=== PATIENT | male | born 1965 | race Caucasian/White ===

== ENCOUNTER 2016-12-02 09:55 | Day surgery (SDC) | payer BC ==
[2016-11-27 14:05] VITALS: BMI 40.0
--- NOTE | 2016-11-27 14:33 | PAT Medication Instructions ---
Service Date Nov 27, 2016. Current Home Medication List Lisinopril (Zestril), 1 TAB PO DAILY Medication Instructions For Your Scheduled Surgery - Hold the following medications the morning of surgery: Lisinopril (Zestril), 5mg 1 TAB PO DAILY If you have any questions please call us at [phone] or [phone] ( [place]) or [phone]
[2016-11-27 15:28] LABS: BASO % 0.6 %; BASO ABS # 0.04 K/uL (0-0.2); COMPLETE YES; EOS % 5.4 %; HEMATOCRIT 41.3 % (42-52); IG% 0.4 %; LYMPH % 23.8 %; LYMPH ABS # 1.64 K/uL (1.2-3.4); MEAN CELL VOLUME 84.8 fL (80-100); MEAN CORPUSCULAR HEMOGLOBIN 30.2 pg (25-34); MEAN CORPUSCULAR HGB CONC 35.6 g/dl (32-36); MEAN PLATELET VOLUME 9.8 fL (7.4-10.4); MONO % 9.1 %; NEUT % 60.7 %; PLATELET COUNT 134 K/uL (130-400); RED BLOOD COUNT 4.87 M/uL (4.7-6.1); WHITE BLOOD COUNT 6.89 K/uL (4.8-10.8)
[2016-11-27 15:40] LABS: PROTHROMBIN TIME (PATIENT) 10.6 SECONDS (9.0-12.0)
[2016-11-27 16:06] LABS: BUN/CREATININE RATIO 15.1 (10-20); CREATININE 1.1 mg/dl (0.60-1.40); POTASSIUM 3.7 mmol/L (3.5-5.1)
--- NOTE | 2016-12-01 15:29 | HISTORY & PHYSICAL EXAMINATION ---
DATE OF ADMISSION: 12/02/2016 HISTORY OF PRESENT ILLNESS: The patient presents as a 5 foot 6, 240 pound, BMI of 38.7, 51-year-old white male with complaints of ongoing pain attributable to his right knee. He has had ongoing complaints of pain that have been nonresponsive to conservative management including physical therapy, anti-inflammatories, bracing, relative rest, injections with corticosteroids. He presents with a knee exam consistent with that of a torn medial meniscus, torn lateral meniscus, as well as chondromalacia patella. He presents for arthroscopy, arthroscopic partial medial meniscectomy, partial lateral meniscectomy, chondroplasty of patella pending findings at time of surgery, postoperative pain management, DVT prophylaxis, antibiotics as necessary. He has failed all other attempts at conservative management. PAST MEDICAL HISTORY: Consistent with hypertension, hypercholesterolemia, sleep apnea. Unremarkable. See history of present illness for pertinent positives. FAMILY HISTORY: Otherwise unremarkable and noncontributory. SOCIAL HISTORY: The patient denies history of smoking, alcohol use or recreational drug use. PAST SURGICAL HISTORY: Unremarkable. ALLERGIES: The patient has no allergies. MEDICATIONS: Lisinopril, dose unknown. PHYSICAL EXAMINATION: GENERAL: Reveals a very pleasant 51-year-old white male, alert, oriented x3 in no acute distress. HEAD, EYES, EARS, NOSE, AND THROAT: Atraumatic, normocephalic. HEART: Regular at 72 beats per minute. LUNGS: Clear without rales, rhonchi, or wheezes noted. ABDOMEN: Soft, nontender, nondistended. Bowel sounds are present in all 4 quadrants. RECTAL: No rectal examination was performed. MUSCULOSKELETAL EXAMINATION: Consistent with that of severe knee pain. Right knee with exam consistent with that of a torn medial meniscus. PLAN: For arthroscopy, arthroscopic partial posterior horn medial meniscectomy, partial posterior and lateral meniscectomy pending findings at time of surgery. Postop pain management, DVT prophylaxis, antibiotics as necessary. X-ray and MRI examination consistent with torn medial meniscus, torn lateral meniscus and chondromalacia patella. Plan is for arthroscopy, postoperative pain management, DVT prophylaxis as noted above.
[~2016-12-02] VITALS: Ht 167.6 cm; Wt 112.9 kg
[~2016-12-02 09:55] MED LIST: CEFAZOLIN 2000 MG/60 ML D5W IV SCH; LACTATED RINGER'S 1000ML 1,000 ML IV SCH; LISI-790 PO
[2016-12-02 10:30] VITALS: BP 189/94; PULSE 85; TEMP 36.6; O2SAT 99; Ht 167.6 cm; Wt 112.9 kg
--- NOTE | 2016-12-02 10:47 | History & Physical Bridge Note ---
H&P Re-Evaluation Bridge Note: I have examined the patient, reviewed the History & Physical and in the interval since the performance of the History & Physical I have noted the following changes of clinical significance: No changes noted
[2016-12-02] MEDS ORDERED: FENTANYL CITRATE INJ 50 MCG/1 ML 2 ML VIAL ONE ×2 (12:47→14:36)
[2016-12-02] MEDS ORDERED: DEXAMETHASONE SOD INJ 4 MG/ML VIAL ONE (12:47)
[2016-12-02] MEDS ORDERED: SUCCINYLCHOLINE CHLORIDE 20 MG/ML 10 ML VIAL IV ONE (12:47)
[2016-12-02] MEDS ORDERED: ONDANSETRON INJ 2 MG/ML 2 ML VIAL ONE (12:47)
[2016-12-02] MEDS ORDERED: EpHEDrine SULFATE INJ 50 MG/ML AMP ONE (12:47)
[2016-12-02] MEDS ORDERED: ROCURONIUM BROMIDE 10 MG/ML 5 ML VIAL ONE (12:47)
[2016-12-02] MEDS ORDERED: PROPOFOL IV EMULSION 10 MG/ML 20 ML VIAL IV ONE (12:47)
[2016-12-02] MEDS ORDERED: NEOSTIGMINE METHYLSULFATE 5 MG/5 ML SYR ONE (12:47)
[2016-12-02] MEDS ORDERED: GLYCOPYRROLATE INJ 0.2 MG/ML VIAL ONE (12:47)
[2016-12-02] MEDS ORDERED: PHENYLEPHRINE HCL INJ 10 MG/ML VIAL ONE (12:47)
[2016-12-02] MEDS ORDERED: LIDOCAINE HCL 2% 2 ML VIAL (20MG/ML) ONE (12:47)
[2016-12-02] MEDS ORDERED: MIDAZOLAM HCL 1 MG/ML 2ML VIAL ONE (12:47)
[2016-12-02] MEDS ORDERED: BUPIVACAINE/EPINEPHRINE 0.25% 1:200,000 30 ML VIAL ONE (13:00)
[2016-12-02] MEDS ORDERED: BUPIVACAINE/EPINEPHRINE 0.5% MPF 1:200,000 30 ML VIAL ONE (13:00)
[2016-12-02] MEDS ORDERED: ATROPINE SULFATE 0.1 MG/ML 5ML SYR IV PRN (13:45)
[2016-12-02] MEDS ORDERED: FENTANYL CITRATE INJ 50 MCG/1 ML 2 ML VIAL IV PRN (13:45)
[2016-12-02] MEDS ORDERED: LABETALOL HCL IV 5 MG/ML 20ML IV PRN (13:45)
[2016-12-02] MEDS ORDERED: PROMETHAZINE HCL INJ 12.5 MG in SODIUM CHLORIDE 0.9% 50ML 50 ML IV PRN (13:45)
[2016-12-02] MEDS ORDERED: ONDANSETRON INJ 2 MG/ML 2 ML VIAL IV PRN ×2 (13:45→14:00)
[2016-12-02] MEDS ORDERED: KETOROLAC TROMETHAMINE 30 MG/ML VIAL IV. PRN (13:45)
[2016-12-02] MEDS ORDERED: LARYING-O-JET KIT (LTA) EXT ONE ×2 (13:52)
[2016-12-02] MEDS ORDERED: SODIUM CHLORIDE 0.9% 1000ML 1,000 ML IV SCH (13:56)
--- NOTE | 2016-12-02 13:58 | Discharge Instructions ---
Discharge Instructions Date of Service Dec 02, 2016. Visit Reason for Visit: Right Knee Medial Meniscus Tear Discharge Discharge Diagnosis / Problem: right knee scope and partial meniscectomy Discharge Goals Goal(s): Decrease discomfort, Improve function, Increase independence Activity Recommendations Activity Limitations: as noted below Weightbearing Status: Right weightbearing (as tolerated) Anesthesia . Post Anesthesia Instructions: If you have had General Anesthesia or IV Sedation: * Do not drive today. * Resume driving when surgeon permits. * Do not make important decisions or sign legal documents today. * Call surgeon for: 1. Temperature elevations greater than 101 degrees F. 2. Uncontrollable pain. 3. Excessive bleeding. 4. Persistent nausea and vomiting. 5. Medication intolerance (nausea, vomiting or rash). * For nausea and vomiting use only clear liquids such as: tea, soda, bouillon until nausea subsides, then gradually increase diet as tolerated. * If you have any concerns or questions, call your surgeon's office. If physician is unavailable and it is an emergency, call 911 or go to the nearest emergency room. . Instructions / Follow-Up Instructions / Follow-Up ACTIVITY RECOMMENDATIONS: * You may walk on the leg with or without crutches as comfort permits. * Bending of the knee should start at once. * Do not shower for 48 hours following surgery. SPECIAL CARE INSTRUCTIONS: * You may cleanse the skin adjacent to the small wounds with soap and water at the time of the first dressing change. * The application of an ice bag to the front and sides of the knee will decrease swelling and discomfort for the first 48 hours. * The small incisions may be sore and develop bruising. This bruising does not require any special care. SPECIAL PRECAUTIONS: * If you experience unusual pain unrelieved by prescriptions, temperature elevation (100 degrees F. or above) or progressive swelling or bleeding, you should contact our office at for further evaluation. * You may have been prescribed pain medication. If you experience nausea and/or fine skin rash, discontinue this medication and contact our office at for an alternate medication. DRESSING: * Dressing should be comfortable and absorb any leakage of fluid and/or blood. * The dressing may become moist or bloodstained. * Dressing may be removed _48 hours_ after surgery and bandaids placed over the small surgical incisions. If can be removed sooner if it becomes very soiled or loose. * Bandaids may be used over next several days as needed and can be discontinued when there is not further drainage from the wounds. FOLLOW UP VISIT: If appointment is not already scheduled: Please call [facility] to make a follow-up appointment for your surgery at . Diet Recommendations Recommended Home Diet: resume previous diet Procedures Procedures Performed: Right Knee Arthroscopy with Partial Medial and Lateral Menisectomies, Chondroplasty: Patella Pending Studies Studies pending at discharge: no Medical Emergencies . Who to Call and When: Medical Emergencies: If at any time you feel your situation is an emergency, please call 911 immediately. . Non-Emergent Contact Non-Emergency issues call your: Primary Care Provider, Surgeon . . "Provider Documentation" section prepared by Bertin Winn. [facility] Drug Monitoring Program Search Results: patient reviewed within database, no issues identified
[2016-12-02] MEDS ORDERED: HYDR-5688 PO (13:59)
[2016-12-02] MEDS ORDERED: HYDROCODONE/ACETAMOPHEN 5/325MG TAB PO PRN ×2 (14:00)
--- NOTE | 2016-12-02 14:05 | [facility] Post Operative Brief Note ---
Immediate Operative Summary Operative Date Dec 02, 2016. Pre-Operative Diagnosis torn medial and lateral mensicus Post-Operative Diagnosis torn medial meniscus; grade 3 medial femoral chondyle and patellofemoral Procedure(s) Performed Right Knee Arthroscopy with Partial Medial menisectomy Chondroplasty: Patella and medial femoral condyle Surgeon Dr. Rick Rai Felling Bucking Supervisor Surgeon(s) None Estimated Blood Loss 3ML Findings TMM Grade 3 mfc and pf Specimens none per surgeon Dr. Rick Rai Complication(s) None Disposition Recovery Room / PACU
--- NOTE | 2016-12-02 14:14 | OPERATIVE REPORT ---
DATE OF OPERATION: 12/02/2016 PREOPERATIVE DIAGNOSIS: Right knee torn medial meniscus. POSTOPERATIVE DIAGNOSES: Right knee torn medial meniscus, grade 3 chondral lesion medial femoral condyle and patellofemoral joint. PROCEDURE: Right knee arthroscopy, partial meniscectomy, arthroscopic chondroplasty medial femoral condyle and patellofemoral joint. SURGEON: Dr. Rai. ANESTHESIA: General. COMPLICATIONS: None. GROSS FINDINGS: The patient is a very pleasant 51-year-old white male with complaints of ongoing pain attributed to his knees that has been nonresponsive to conservative therapy and presents today for arthroscopic evaluation. He has failed attempts at conservative management including relative rest, activity modification, physical therapy and presents for arthroscopic evaluation. PROCEDURE: After proper prepping and draping of the right lower extremity, medial and lateral arthroscopic parapatellar portals were created. Arthroscopic examination beginning in the region of the medial compartment revealed there to be evidence of a tear involving the posterior horn of the posterior third of the medial meniscus. Subsequently, a partial posterior horn medial meniscectomy was performed. The medial femoral condyle approximately grade 3 zone, approximately 2 x 3 cm in medial femoral condyle and chondroplasty performed a stable margin. Lateral meniscus was visualized and probed and noted to be intact. Anterior and posterior cruciate ligaments were visualized and probed and noted to be intact, patellofemoral joint was visualized and probed and evidence of grade 2 and 3 chondral lesion involving the medial ridge of the patella subsequently debrided and a chondroplasty performed back to a stable margin. All particulate matter and debris was removed. Skin portals were closed with 4-0 nylon. Sterile compression dressing was placed. The patient was taken to recovery room in stable condition. I attest to the content of the Intraoperative Record and any orders documented therein. Any exceptions are noted below. JESSICA
--- NOTE | 2016-12-02 14:47 | Anesthesiology Progress Note ---
Anesthesia Post Op Note Date & Time Dec 02, 2016 at 14:47 Vital Signs Pain Intensity: 5 Vital Signs Past 12 Hours Date Time Temp Pulse Resp B/P Pulse Ox O2 Delivery O2 Flow Rate FiO2 12/02/16 14:40 70 16 143/88 98 Room Air 12/02/16 14:30 79 16 143/88 100 Mask 10 12/02/16 14:20 77 16 153/96 100 Mask 10 12/02/16 14:07 36.1 74 16 143/94 100 Mask 10 12/02/16 10:30 36.6 85 18 189/94 99 Room Air Notes Mental Status: alert / awake / arousable, participated in evaluation Pt Amnestic to Procedure: Yes Nausea / Vomiting: adequately controlled Pain: adequately controlled Airway Patency, RR, SpO2: stable & adequate BP & HR: stable & adequate Hydration State: stable & adequate Anesthetic Complications: no major complications apparent
[2016-12-02 15:10] VITALS: BP 134/81; PULSE 75; TEMP 36.5; O2SAT 100
[2016-12-02 15:40] VITALS: BP 154/85; PULSE 73; TEMP 36.7; O2SAT 95
[2016-12-02 16:10] VITALS: BP 148/89; PULSE 87; TEMP 36.7; O2SAT 97
== END 2016-12-02 16:20 | disposition home or self-care (01) ==
LOC: C.ACU 09:55
PROVIDERS: ATTEND Orthopaedic Surgery
DX: S83.241A Other tear of medial meniscus, current injury, right knee, initial encounter (principal); X58.XXXA Exposure to other specified factors, initial encounter; M25.861 Other specified joint disorders, right knee; I10 Essential (primary) hypertension; G47.30 Sleep apnea, unspecified

== ENCOUNTER 2020-07-23 07:34 | Inpatient (IN) ==
--- NOTE | 2020-06-21 14:17 | PAT Medication Instructions ---
Medication Instructions Date of Service June 21, 2020 Home Medications lisinopril 5 mg PO QAM tizanidine 4 mg PO BID PRN tramadol 50 mg PO Q8H PRN DO NOT take the morning of surgery isinopril 5 mg PO QAM tizanidine 4 mg PO BID PRN Take morning of surgery With a small sip of water, OTHERWISE NOTHING TO EAT OR DRINK AFTER MIDNIGHT: tramadol 50 mg PO Q8H PRN (okay to take up to 4 hours prior to surgery if needed) Take evening before surgery tizanidine 4 mg PO BID PRN (if needed) tramadol 50 mg PO Q8H PRN (if needed) Other Notes If you have any questions please call us at [phone] or [phone] or [phone] or [phone]
--- NOTE | 2020-06-25 09:19 | Anesthesiology Consultation ---
Date of Service June 25, 2020 Assessment & Plan (1) Encounter for pre-operative examination: Chart Review Chart Review: Acceptable Risk for Surgery (pending preop Covid testing ) and Patient seen in Pre Admission Testing Per PAT appt on 06/25/20, pt resides in [facility] and travels routinely to [facility]. Uses PPE. No known Covid positive contacts or Covid related symptoms. Scheduled for preop Covid testing 07/16/20. Educated on importance of self quarantining, social distancing and wearing mask in public both for the patient and household contacts. Teaching & Discussion Pre-Anesthesia Teaching/Discussion Notes: Instructed NPO after midnight before surgery,except medications with 15 cc of water. Medication instructions provi ded according to the PAT guidelines. History Surgery Operation Date: 07/23/20 07:45 Proposed Procedures p L3-L4 Decompression and Fusion, L4-L5 Hardware Removal, Spinal Cord Monitoring - Lance Irwin, DO Height/Weight Height: 5 ft 6 in Weight: 113.2 kg Allergies Allergy/AdvReac Type Severity Reaction Status Date / Time No Known Allergies Allergy Unverified 06/21/20 13:07 Medications Home Medications Medication Instructions Recorded Confirmed Last Taken lisinopril 5 mg PO QAM 06/21/20 06/21/20 Unknown tizanidine 4 mg PO BID PRN 06/21/20 06/21/20 Unknown tramadol 50 mg PO Q8H PRN 06/21/20 06/21/20 Unknown Past Medical History Medical History Anxiety Stable without meds GERD (gastroesophageal reflux disease) Well controlled and stable without meds Hypertension Osteoarthritis Exercise / Class Metabolic Activity II 4-5 Yardwork/Stairs/Walk up hill (one flight of stairs - no chest pain or SOB- increased back pain ) Past Surgical History Surgical History History of arthroscopy of right knee History of lumbar fusion Past Anesthesia History No Hx of Anesthesia Complications and No Family Hx of Anesthesia Complications History of PONV No Hx of PONV and No Hx of Motion Sickness Social History Smoking Status: Never smoker Do You Dip or Chew Tobacco: No Hx Alcohol Use: Yes Alcohol type: beer alcohol intake frequency: 0-2 drinks per day Alcohol Intake Frequency Comment: 1-2 drinks per day several times week Hx Substance Use: No substance use type: does not use Review of Systems Occ snoring and occasional witnessed apnea- no hx of sleep study Patient denies chest pain, shortness of breath, dyspnea on exertion, cough, wheezing, palpitations. No hx of seizures, stroke, [place]. No hx of blood clots or blood transfusions Physical Exam Vital Signs VITALS BP 167/99 P 73 TEMP 98.5 SP02 98% RESP 16 Constitutional no acute distress ENMT Mouth: + small oral opening; no TMJ clicking Thyromental Distance: > or= 3.5 Finger Breadths (3.5) Mallampati Class: III Denies loose or missing teeth Neck + thick neck (mild ) and + limited neck extension (minimal ) Respiratory normal respiratory effort; no respiratory distress Auscultation: lungs clear to auscultation bilaterally; no wheezes Cardiovascular Rate/Rhythm: regular rate and regular rhythm Heart Sounds: no murmur Vessels: no carotid bruit Musculoskeletal Spine: no pain with cervical ROM Neurologic moves all extremities Psychiatric Orientation: alert Testing Laboratory Results 06/25/20 09:45 06/25/20 09:45 PT 10.5 Seconds (9.0-12.0) 06/25/20 09:45 INR 1.0 (0.9-1.1) 06/25/20 09:45 APTT 25.8 Seconds (21.0-31.0) 06/25/20 09:45 Urine Color Dark Yellow 06/25/20 09:45 Urine Appearance Clear (Clear) 06/25/20 09:45 Urine pH 5.5 (4.5-7.5) 06/25/20 09:45 Ur Specific Imbler 1.023 (1.000-1.030) 06/25/20 09:45 Urine Protein Negative (Negative) 06/25/20 09:45 Urine Glucose (UA) Negative (Negative) 06/25/20 09:45 Urine Ketones Trace (Negative) H 06/25/20 09:45 Urine Nitrite Negative (Negative) 06/25/20 09:45 Ur Leukocyte Esterase Negative (Negative) 06/25/20 09:45 Blood Type O Positive 06/25/20 09:45 Antibody Screen NEGATIVE 06/25/20 09:45 Electrocardiogram Date: 06/25/20 Findings: + NSR @ (62) Minimal voltage criteria, may be normal variant. Compared to EKG from November 27, 2016- no significant change per cardio. Chest X-Ray Date: 06/25/20 Findings: + NAD There is ankylosis of the thoracic spine.
--- NOTE | 2020-06-25 09:58 | Electrocardiogram Report ---
Test Reason : Blood Pressure : / mmHG Vent. Rate : 062 BPM Atrial Rate : 062 BPM P-R Int : 130 ms QRS Dur : 092 ms QT Int : 410 ms P-R-T Axes : 051 -24 031 degrees QTc Int : 416 ms Normal sinus rhythm Minimal voltage criteria for LVH, may be normal variant Borderline ECG When compared with ECG of 27-NOV-2016 14:40, No significant change was found Confirmed by Zev Cloud ([id number]) on 06/25/2020 9:57:46 AM Referred By: Lance Irwin Confirmed By:Zev Cloud
--- NOTE | 2020-06-25 10:13 | XRay Report ---
XR chest Pre-admission PA/Lat CLINICAL HISTORY: Preoperative chest COMPARISON STUDY: No previous studies for comparison. FINDINGS: The cardiac and mediastinal contours are normal. There is no evidence of focal pulmonary co nsolidation. There is no evidence of failure. No pleural effusions are visualized.[There is ankylosis of the thoracic spine. IMPRESSION: No active disease in the chest. ACT 112: Negative or not required by law. Electronically signed by: Galileo Branham M.D. 06/25/2020 10:12 AM
[2020-06-25 10:22] LABS: Basophils # (auto) 0.04 K/uL (0-0.2); Basophils % (auto) 0.5 %; Eosinophils # (auto) 0.46 K/uL (0-0.5); Eosinophils % (auto) 5.8 %; Hematocrit (blood only) 44.2 % (42-52); Hemoglobin 15.1 g/dL (14.0-18.0); Immature Granulocytes # (auto) 0.06 K/uL (0.00-0.02); Immature Granulocytes % (auto) 0.8 %; Lymphocytes # (auto) 1.78 K/uL (1.2-3.4); Lymphocytes % (auto) 22.3 %; Mean Corpuscular Hemoglobin 30.1 pg (25-34); Mean Corpuscular Hgb Conc 34.2 g/dL (32-36); Mean Corpuscular Volume 88.2 fL (80-100); Mean Platelet Volume 10.1 fL (7.4-10.4); Neutrophils # (auto) 4.86 K/uL (1.4-6.5); Neutrophils % (auto) 60.6 %; Platelet Count 151 K/uL (130-400); RDW Coefficient of Variation 13.1 % (11.5-14.5); RDW Standard Deviation 41.5 fL (36.4-46.3); Red Blood Count 5.01 M/uL (4.7-6.1)
[2020-06-25 10:30] LABS: Appearance Urine Clear (Clear); Bilirubin Urine Negative (Negative); Blood Urine Negative (Negative); Color Urine Dark Yellow; Glucose Urine UA Negative (Negative); Ketones Urine Trace (Negative); Leukocyte Esterase Urine Negative (Negative); Nitrite Urine Negative (Negative); Protein Urine Negative (Negative); Specific Gravity Urine 1.023 (1.000-1.030); Urobilinogen Urine Negative (Negative); pH Urine 5.5 (4.5-7.5)
[2020-06-25 10:34] LABS: Partial Thromboplastin Ratio 0.9; Partial Thromboplastin Time 25.8 Seconds (21.0-31.0); Prothrombin Time 10.5 Seconds (9.0-12.0)
[2020-06-25 12:30] LABS: Calcium 9.3 mg/dl (8.5-10.1); Creatinine Clr Calc Pharmacy 84.5 ml/min; Est GFR (African American) 82.3; Potassium 4.4 mmol/L (3.5-5.1)
[~2020-07-23 07:34] MED LIST changes: +ACETAMINOPHEN 500 MG TAB PO SCH; -CEFAZOLIN 2000 MG/60 ML D5W IV SCH; +CeleBREX 200 MG CAP PO SCH; +GABAPENTIN 600 MG DOSE PO SCH; +HYDROmorphone INJ 2 MG/ML SYR/VIAL ONE; -LACTATED RINGER'S 1000ML 1,000 ML IV SCH; -LISI-790 PO; +LR 15ML/HR IV SCH; +MIDAZOLAM HCL 1 MG/ML 2ML VIAL ONE; +ceFAZolin 2000MG 2,000 MG/15 ML SYR IV SCH; +fentaNYL citrate 100 MCG/2 ML VIAL ONE
--- NOTE | 2020-07-23 12:05 | History & Physical Bridge Note ---
Date of Service July 23, 2020 History & Physical Bridge Note I have examined the patient, reviewed the History & Physical and in the interval since the performance of the History & Physical I have noted the following changes of clinical significance: no changes noted
--- NOTE | 2020-07-23 12:06 | History & Physical Report ---
Date of Service July 23, 2020 Assessment & Plan (1) Neurogenic claudication due to lumbar spinal stenosis: Admission and Anticipated Discharge Date Admission Date: L3-L4 decompression fusion, L4-5 hardware removal History of Present Illness Chief Complaint: Back and bilateral leg pain Primary Care Provider: Janice Camilo This is a 55-year-old male who presents with chronic persistent back and leg pain. After failing course of nonoperative care is here for surgical invention. Allergies Allergy/AdvReac Type Severity Reaction Status Date / Time No Known Allergies Allergy Unverified 07/23/20 11:16 Home Medications Medication Instructions Recorded Confirmed Type lisinopril 5 mg PO QAM 06/21/20 07/23/20 History tizanidine 4 mg PO BID PRN 06/21/20 07/23/20 History tramadol 50 mg PO Q8H PRN 06/21/20 07/23/20 History Tylenol Extra Strength 2 tab PO BID 07/23/20 07/23/20 History Past Med/Surg History Medical History (Updated 07/23/20 @ 12:06 by Lance Irwin DO) Anxiety Stable without meds GERD (gastroesophageal reflux disease) Well controlled and stable without meds Hypertension Osteoarthritis Surgical History History of arthroscopy of right knee History of lumbar fusion Social History Smoking Status: Never smoker Second Hand Exposure: No; Do You Dip or Chew Tobacco: No; Tobacco Cessation Education Requested by Patient: No Hx Alcohol Use: Yes Alcohol type: beer Hx Substance Use: No Preferred Language: Pashto Communication Ability: Effective Principal Trainer Required: No Beliefs That Will Affect Care: None Current Living Situation: Spouse Other Information That Helps Us Care for You: No Feels Safe at Home: Yes Safety Concerns: Feels Safe At This Time Assistive Devices: Glasses Physical Exam Physical Exam: Patient is alert and oriented Heart regular rhythm Lungs clear to auscultation Results & Data ([facility]) Vital Signs (Past 12 Hours) Vital Signs Temp Pulse Resp BP Pulse Ox 07/23/20 11:26 37 C 105 H 20 181/93 H 97
[2020-07-23] MEDS ORDERED: ePHEDrine sulfate 50 MG/ML AMP IV PRN (12:12)
[2020-07-23] MEDS ORDERED: ONDANSETRON INJ 2 MG/ML 2 ML VIAL IV PRN ×2 (12:12→16:21)
[2020-07-23] MEDS ORDERED: HYDROmorphone INJ 2 MG/ML SYR/VIAL IV PRN (12:12)
[2020-07-23] MEDS ORDERED: PROMETHAZINE HCL 6.25 MG in SODIUM CHLORIDE 0.9% 50 ML IV PRN (12:12)
[2020-07-23] MEDS ORDERED: fentaNYL citrate 100 MCG/2 ML VIAL IV PRN (12:12)
[2020-07-23] MEDS ORDERED: ATROPINE SULFATE 0.1 MG/ML 10ML SYR IV PRN (12:12)
[2020-07-23] MEDS ORDERED: BACITRACIN INJ 50,000 UNIT VIAL ONE (12:27)
[2020-07-23] MEDS ORDERED: BUPIVACAINE/EPINEPHRINE 0.5% MPF 1:200,000 30 ML VIAL ONE (12:27)
[2020-07-23] MEDS ORDERED: PHENYLEPHRINE HCL 10 MG/ML VIAL ONE (13:17)
[2020-07-23] MEDS ORDERED: ROCURONIUM BROMIDE 10 MG/ML 5 ML VIAL IV ONE (13:17)
[2020-07-23] MEDS ORDERED: PROPOFOL IV EMULSION 10 MG/ML 20 ML VIAL IV ONE (13:17)
[2020-07-23] MEDS ORDERED: ONDANSETRON INJ 2 MG/ML 2 ML VIAL ONE (13:17)
[2020-07-23] MEDS ORDERED: DEXAMETHASONE SOD INJ 4 MG/ML VIAL ONE (13:17)
[2020-07-23] MEDS ORDERED: LIDOCAINE HCL 2% 2 ML VIAL/AMP(20MG/ML) INFIL ONE (13:17)
[2020-07-23] MEDS ORDERED: LARYING-O-JET KIT (LTA) ONE (13:17)
[2020-07-23] MEDS ORDERED: FLOSEAL HEMOSTATIC MATRIX 10ML TOP ONE (13:32)
[2020-07-23] MEDS ORDERED: fentaNYL citrate 100 MCG/2 ML VIAL ONE (13:44)
--- NOTE | 2020-07-23 14:13 | Operative Report ---
Post Operative Report Pre & Post Diagnosis Operation Date: 07/23/20 09:15 Pre-Op Diagnosis: Neurogenic claudication due to lumbar spinal stenosis Post-Op Diagnosis: Neurogenic claudication due to lumbar spinal stenosis I identified the patient and participated in the time-out.: Yes Procedure Operation Date: 07/23/20 09:15 Actual Procedures #1 removal of posterior instrumentation L4-5 per #2 exploration of fusion L4-5. #3 lumbar decompression with bilateral medial facetectomies and foraminotomies L2-3 and L3-4. #4 posterior spinal fusion L3-4 per #5 placement posterior instrumentation L3-4. #6 interbody fusion L3-4. #7 placement peek cage 12 x 26 mm at L3-4. #8 placement locally harvested morselized autograft in the posterior gutters. #9 placement infuse collagen sponge, master graft and posterior gutters and ostial amp interbody space. Surgeon Lance Irwin, Chiropractor Assistant Nuris Dominguez Estimated Blood Loss 200 Findings See Below The patient is 5 foot 6 inches tall weighing over 112 kg with a BMI of 40. The patient's body habitus did add significant technical difficulty requiring her deepest retractors longus instruments in order to perform this procedure. This added at least 50% increase to the operative time. Specimens None Indications This is a 55-year-old male who presents with above-mentioned diagnosis after failing course of nonoperative care is here for debridement procedure. Description of Procedure Patient was met with identified informed consent obtained. Patient was then taken to the operative suite underwent an patient placed in a prone position the Stephon table on top of the Tej frame. All bony prominences well-padded eyes inspected to ensure no external pressure placed upon them. This point the lumbar spine was prepped and draped in normal sterile fashion. Sharp dissection with the assistance of Bovie cautery was performed down to and exposing the lamina and transverse processes of L3 and the instrumentation at L4 and L5 bilaterally. Then proceeded move the hardware bilaterally explore the fusion mass noting it to be intact. Then performed a complete laminectomy of L3 partial laminectomy L2 including bilateral medial facetectomies and foraminotomies addressing severe spinal stenosis. Pedicle screw was then placed in L3 and L4 bilaterally with the assistance of fluoroscopy and appropriately sized cadence placed. By way of a transforaminal approach and left complete discectomy of L3-4 was performed endplates curetted to subcortical bleeding bone and a 12 x 26 mm peek cage filled with osteobone graft tapped in position. The rods then locked in final position bilaterally. The transverse processes of L3 and L4 were burred to subcortical bleeding bone. Infuse collagen sponge master graft local autograft was placed in the posterior gutters. 15 round RAFIA drain inserted. Incision was then closed with 1 Vicryl in the fascia 2-0 Vicryl subcutaneously and 4 Monocryl for final skin closure. Steri-Strip sterile dressings placed. Patient waken taken to PACU stable condition. Please note spinal cord monitoring was utilized that the procedure no changes noted. Lastly Nuris Dominguez was present at the entire procedure involved the patient positioning complex portions of the surgery and final skin closure. I attest to the content of the Intraoperative Record and any orders documented therein. Any exceptions are noted below.
--- NOTE | 2020-07-23 14:21 | Fluoroscopy Report ---
FL lumbar spine 2-3V CLINICAL HISTORY: L3-L4 DECOMPRESSION AND FUSION L4-L5 HW REMOVAL COMPARISON STUDY: None. FLUOROSCOPY TIME: 11.4 seconds. FLUOROSCOPIC IMAGES: 2. FINDINGS: Exact localization is difficult given partial visualization of the lumbar spine however the se images demonstrate a probable interval L3-L4 discectomy with interbody spacer placement. Posterior decompression is noted with bilateral pedicle screws at the L3 and L4 levels with interconnecting ro ds. A previous L4-L5 discectomy is noted. IMPRESSION: Fluoroscopy provided during L3-L4 discectomy, posterior decompression and bilateral pedi arcenio screw fusion. ACT 112: Negative or not required by law. Electronically signed by: Orlin Lopes M.D. 07/23/2020 2:20 PM
--- NOTE | 2020-07-23 15:55 | Anesthesiology Progress Note ---
Date of Service July 23, 2020 Anesthesia Post Procedure Vital Signs Vital Signs: Temp Pulse Pulse Resp BP BP Pulse Ox 07/23/20 15:45 36.6 C 88 14 138/86 92 07/23/20 15:35 92 H 15 156/84 H 96 07/23/20 15:25 99 H 16 153/91 H 95 07/23/20 15:15 99 H 17 172/87 H 95 07/23/20 15:05 90 13 122/95 97 07/23/20 14:55 94 H 14 179/85 H 97 07/23/20 14:45 108 H 18 165/92 H 98 07/23/20 14:39 36.0 C L 116 H 18 148/97 H 97 07/23/20 11:26 37 C 105 H 20 181/93 H 97 Pain Intensity Bilateral Knee: Pain Intensity: 7 Transfer of Care Handoff Completed per policy Notes Mental Status: alert / awake / arousable Patient Amnestic to Procedure: Yes Nausea / Vomiting: adequately controlled Pain: adequately controlled Airway Patency, RR, SpO2: stable & adequate BP & HR: stable & adequate Hydration State: stable & adequate Anesthetic Complications: no major complications apparent
[2020-07-23] MEDS ORDERED: tiZANidine HCL 4 MG TABLET PO PRN (16:21)
[2020-07-23] MEDS ORDERED: diphenhydrAMINE Capsule 25 MG CAP PO PRN (16:21)
[2020-07-23] MEDS ORDERED: DO NOT ADMINISTER FLU VACCINE PRN (16:21)
[2020-07-23] MEDS ORDERED: ONDANSETRON 4 MG OD TAB PO PRN (16:21)
[2020-07-23] MEDS ORDERED: LORazepam 0.5 MG TAB PO PRN (16:21)
[2020-07-23] MEDS ORDERED: FAMOTIDINE 20 MG TAB PO PRN (16:21)
[2020-07-23] MEDS ORDERED: MAGNESIUM HYDROXIDE SUSP 30 ML UDC PO PRN (16:21)
[2020-07-23] MEDS ORDERED: HYDROmorphone INJ 0.5 MG/0.5 ML SYR IV PRN (16:21)
[2020-07-23] MEDS ORDERED: DO NOT ADMINISTER PNEUMOCOCCAL VACCINE PRN (16:21)
[2020-07-23] MEDS ORDERED: NALOXONE HCL 0.4 MG/1 ML VIAL/CARP IV PRN (16:21)
[2020-07-23] MEDS ORDERED: ALUMINUM/MAGNESIUM SUSP 30 ML UDC PO PRN (16:21)
[2020-07-23] MEDS ORDERED: PROMETHAZINE HCL 12.5 MG in SODIUM CHLORIDE 0.9% 50 ML IV PRN (16:21)
[2020-07-23] MEDS ORDERED: traMADol HCL 50 MG TABLET PO PRN (16:21)
[2020-07-23] MEDS ORDERED: bisacodyL 10 MG SUPP PR PRN (16:21)
[2020-07-23] MEDS ORDERED: METOCLOPRAMIDE HCL INJ 5 MG/ML 2 ML VIAL IV PRN (16:21)
[2020-07-23] MEDS ORDERED: oxyCODONE HCL IR 5 MG TAB (IMMEDIATE RELEASE) PO PRN (16:21)
[2020-07-23] MEDS ORDERED: SOD PHOSPHATE/SOD BIPHOSPHATE ENEMA 132 ML BTL PR PRN (16:21)
[2020-07-23] MEDS ORDERED: hydrOXYzine HCl 25 MG TAB PO PRN (16:21)
[2020-07-23] MEDS ORDERED: HYDROmorphone INJ 1 MG/ML SYRINGE IV PRN (16:21)
[2020-07-23] MEDS ORDERED: ACETAMINOPHEN 1,000 MG/100 ML VIAL IV PRN (16:21)
[2020-07-23] MEDS ORDERED: LORazepam 0.5 MG/1 ML VIAL IV PRN (16:21)
[2020-07-23] MEDS: LACTATED RINGER'S 1,000 ML IV SCH ×2 (16:41→23:13)
[2020-07-23] MEDS: KETOROLAC 30 MG/ML VIAL IV SCH ×2 (17:17→23:15)
[2020-07-23] MEDS: ceFAZolin 2000MG 2,000 MG/15 ML SYR IV SCH (19:17)
[2020-07-23] MEDS: DOCUSATE SODIUM/SENNA 50/8.6MG TAB PO SCH (19:20)
[2020-07-24] MEDS: ceFAZolin 2000MG 2,000 MG/15 ML SYR IV SCH (04:42)
[2020-07-24] MEDS: KETOROLAC 30 MG/ML VIAL IV SCH ×2 (04:42→10:16)
[2020-07-24] MEDS: POLYETHYLENE (MIRALAX) 17 GM PACK PO SCH ×3 (04:43→18:04)
[2020-07-24 06:55] LABS: Hematocrit (blood only) 38.9 % (42-52); Hemoglobin 13.3 g/dL (14.0-18.0); Immature Granulocytes # (auto) 0.07 K/uL (0.00-0.02); Immature Granulocytes % (auto) 0.3 %; Lymphocytes # (auto) 0.74 K/uL (1.2-3.4); Lymphocytes % (auto) 3.7 %; Mean Corpuscular Hemoglobin 30.2 pg (25-34); Mean Corpuscular Hgb Conc 34.2 g/dL (32-36); Mean Corpuscular Volume 88.2 fL (80-100); Mean Platelet Volume 10.5 fL (7.4-10.4); Monocytes # (auto) 1.13 K/uL (0.11-0.59); Monocytes % (auto) 5.6 %; Neutrophils # (auto) 18.32 K/uL (1.4-6.5); Neutrophils % (auto) 90.4 %; Platelet Count 189 K/uL (130-400); RDW Coefficient of Variation 13.4 % (11.5-14.5); RDW Standard Deviation 42.9 fL (36.4-46.3); Red Blood Count 4.41 M/uL (4.7-6.1); White Blood Count 20.26 K/uL (4.8-10.8)
[2020-07-24 07:12] LABS: BUN Creatinine Ratio 14.8 (10-20); Calcium 9.7 mg/dl (8.5-10.1); Creatinine Clr Calc Pharmacy 67.1 ml/min; Est GFR (African American) 62.6; Potassium 4.2 mmol/L (3.5-5.1)
[2020-07-24] MEDS: lisinopril 5 MG TAB PO SCH (08:33)
--- NOTE | 2020-07-24 09:08 | Orthopedic Progress Note ---
Date of Service July 24, 2020 Assessment & Plan (1) Neurogenic claudication due to lumbar spinal stenosis: Admission and Anticipated Discharge Date Admission Date: July 23, 2020 At this time continue physical therapy monitor his RAFIA output hopefully discharge home in the next day or so. Subjective Patient's back pain is well controlled leg symptoms markedly improved. Physical Exam Physical Exam: Patient is in the chair at the bedside is good strength testing. Appears comfortable. Results & Data ([facility]) Vital Signs (Past 12 Hours) Vital Signs Temp Pulse Resp BP Pulse Ox 07/24/20 07:28 36.7 C 97 H 18 125/76 95 07/24/20 03:06 36.4 C L 104 H 16 142/80 H 91 07/23/20 23:41 36.4 C L 108 H 16 149/81 H 97
[2020-07-24] MEDS: DEXAMETHASONE SOD PHOSPHATE 8 MG in SYRINGE 0 ML IV SCH (10:15)
[2020-07-24] MEDS: ACETAMINOPHEN 500 MG TAB PO PRN (12:51)
[2020-07-24] MEDS: DOCUSATE SODIUM/SENNA 50/8.6MG TAB PO SCH (20:15)
[2020-07-25] MEDS: ACETAMINOPHEN 500 MG TAB PO PRN (02:55)
--- NOTE | 2020-07-25 08:11 | Discharge Summary ---
Date of Service July 25, 2020 Admission HPI Per Admitting Provider This is a 55-year-old male who presents with chronic persistent back and leg pain. After failing course of nonoperative care is here for surgical invention. Principal Diagnosis Lumbar spinal stenosis with neurogenic claudication Discharge Data Allergies Allergy/AdvReac Type Severity Reaction Status Date / Time No Known Allergies Allergy Unverified 07/23/20 11:16 Consultations 07/23/20 16:21 Consult Case Management - Discharge Planning Routine Procedures Performed Operation Date: 07/23/20 09:15 Actual Procedures p L3-L4 Decompression and Fusion, Spinal Cord Monitoring(Not Applicable) - Lance Irwin DO s L4-L5 Hardware Removal(Not Applicable) - Lance Irwin DO Ordered Studies 07/23/20 10:25 FL fluoroscopy <1hr Routine FL lumbar spine 2-3V Routine Hospital Course (1) Neurogenic claudication due to lumbar spinal stenosis: Patient with lumbar decompression fusion tolerated as well as making orthopedic for postoperative. Postop day 1 he was up and ambulating briskly postop day #2. RAFIA drain decreasing probably. Excellent strength testing. Subsequent discharge home. Discharge orders and instructions were on the chart for further review. Total Time Total Time Spent Total Time Spent (In Minutes): 20 minutes Discharge Plan Discharge Items Patient Disposition: Home - Self-Care Reason For Visit: Spinal Stenosis, Lumbar Region with Neurogenic Cla Discharge Diagnosis: Lumbar spinal stenosis with neurogenic claudication Activity: As commented below Non-emergency contact: Primary Care Provider Call non-emergency contact if: you have any medication questions Follow-up/Referrals: Janice Camilo M.D. [Primary Care Provider] - Diet: Regular Addtl Attending Provider Instructions: ACTIVITY RECOMMENDATIONS: SELF CARE INSTRUCTIONS AFTER THORACIC/LUMBAR FUSIONS 1. You may walk to your tolerance. It is good exercise for your legs and back. Expect some back and intermittent leg aches and pains. 2. You may perform "counter-top" level activities (make a sandwich, juno with a project, etc.). 3. No bending or lifting of more than 10 pounds or back twisting of any nature (roll like a log when turning in bed). 4. You may ride in a car for 20-30 minutes at a time. No driving until after your first visit with your doctor. 5. Frequent changes of position and restricting sitting to 30 minutes at a time will help limit the amount of back spasms and stiffness you may experience. 6. You may discontinue the use of ambulatory aids (cane, crutches, etc.) once your strength and confidence allow. 7. You may morning news anchor the shower and let water strike your incision when you arrive home at least once daily. Do not take a tub bath, sit in a hot tub or go into a swimming pool until after your first recheck in the office. SPECIAL CARE INSTRUCTIONS: VERY IMPORTANT TO READ AND REVIEW A. Your surgical incision has been closed with a cosmetic suture under the skin that will dissolve in about 6 weeks. In 14 days, you can use a pair of clean scissors and cut the suture that is left outside of the skin at the ends of your incision. 1. The small skin tapes can be removed 7 days after surgery if they have not fallen off by that point. 2. You may keep the wound open to air as much as possible to promote healing after post-op day number 5 unless told otherwise by your doctor. 3. If you think the wound looks like it is becoming infected (redness or worsening drainage) and/or you are experiencing fever, chill or worsening back pain and muscle spasms, contact the office so that we may evaluate you as soon as possible. B. Complications are uncommon, but please contact us if you have any signs or symptoms of: 1. wound infection (fever higher than 102.5 degrees F, redness, separation of wound, drainage, or increasing pain from the incision) 2. blood clots in legs (pain, swelling, redness and warmth in legs) 3. urinary tract infection (fever higher than 102.5 degrees F, burning upon urination or increased frequency of urination) 4. nerve problems (inability to walk on your toes or heels, numbness, loss of bowel or bladder control) 5. any other symptoms that concern you C. Please call the office at if you have any concerns or questions about your operation or recovery. D. No smoking! Smoking drastically decreases the chance of a solid fusion. E. Do not take any anti-inflammatory medications (Indocin, Advil, Motrin, Aspirin, Naprosyn, etc.) as these may inhibit the chance of a solid fusion. Tylenol is okay to take for pain. MANAGING PAIN AFTER SPINAL SURGERY 1. Narcotic medication is intended for short-term use and will be provided for surgical pain. Surgical pain usually lasts for a period of 4-6 weeks. Narcotic medication includes Percocet, Vicodin, Darvocet, Tylenol #3 or Lortab. 2. Longer-term pain is more appropriately treated with non-narcotic medication such as Tylenol ES. 3. Muscle spasm is not appropriately treated with narcotics. Muscle relaxers such as Soma, Flexeril or Skelaxin can be used along with Tylenol ES. 4. Remember that we all live with some "aches and pains". This is not unusual or uncommon after an injury or as we get older. a. Back pain is expected and may include muscle spasms for 4 to 6 weeks after surgery. The pain should gradually improve. If the pain worsens for no apparent reason, please contact the office. b. Intermittent leg pain may also be experienced and should not be concerned about unless it worsens for no apparent reason. If so, please contact the office. 5. We will provide appropriate medication within the normal guidelines of their prescribed use. We will also be very cautious and aware of potential abuse and extended duration of patients' medication needs. a. Pain medications are for your comfort and to assist with sleep and rest so that the tissue can heal. They are not provided in order to return to normal activity and should not be used through the day. To do so or worsening pain at night can result from ongoing tissue damage and develo pment of tolerance to the prescribed medicine. 6. Please allow 2-3 days to process refills. Prescriptions will not be mailed but must be picked up at the office. FOLLOW UP VISIT: Keep your scheduled follow-up appointment. Any questions, please call the office at . Pending Studies at Discharge: No Stand-Alone Forms: My [employer], Smoking Cessation Medications and DC Order Prescriptions: New tramadol 50 mg tablet 50 mg PO Q6H PRN (Reason: pain, moderate) Qty: 30 RF: 0 oxycodone 5 mg tablet 5 mg PO Q6H PRN (Reason: pain, severe) Qty: 30 RF: 0 Continued tizanidine 4 mg Tablet 4 mg PO BID PRN (Reason: Pain) RF: 0 tramadol 50 mg Tablet 50 mg PO Q8H PRN (Reason: Pain) RF: 0 lisinopril 5 mg Tablet 5 mg PO QAM RF: 0 Tylenol Extra Strength 500 mg 2 tab PO BID RF: 0 Discharge Orders: Discharge Order (Routine); Ordered 07/25/20 Ordered By: Lance Irwin Admission Data Admit Date/Time: 07/23/20 14:43 Attending Provider: Lance Irwin Admit Provider: Lance Irwin Primary Care Provider: Janice Camilo
[2020-07-25] MEDS: DEXAMETHASONE SOD PHOSPHATE 8 MG in SYRINGE 0 ML IV SCH (08:16)
[2020-07-25] MEDS: lisinopril 5 MG TAB PO SCH (08:16)
== END 2020-07-25 11:00 | disposition home or self-care (01) | DRG 455 ==
LOC: ASU 07:34 → 3E 14:43

== ENCOUNTER 2023-09-21 10:19 | Observation (INO) ==
--- NOTE | 2023-08-19 10:36 | PAT Medication Instructions ---
Medication Instructions Date of Service August 19, 2023 Home Medications lisinopril 5 mg tablet 5 mg PO QAM tramadol 50 mg tablet 50 mg PO Q8H PRN Pain calcium carbonate 300 mg (750 mg) chewable tablet (Tums) 300 mg PO TID PRN Heartburn diclofenac sodium 75 mg tablet,delayed release 75 mg PO DAILY PRN Pain ergocalciferol (vitamin D2) 1,250 mcg (50,000 unit) capsule (Vitamin D2) 1,250 mcg PO MONTHLY multivitamin 1 tab PO QAM ASK your surgeon for instructions diclofenac sodium 75 mg tablet,delayed release 75 mg PO DAILY PRN Pain DO NOT take the morning of surgery lisinopril 5 mg tablet 5 mg PO QAM calcium carbonate 300 mg (750 mg) chewable tablet (Tums) 300 mg PO TID PRN Heartburn ergocalciferol (vitamin D2) 1,250 mcg (50,000 unit) capsule (Vitamin D2) 1,250 mcg PO MONTHLY multivitamin 1 tab PO QAM Take morning of surgery With a small sip of water, OTHERWISE NOTHING TO EAT OR DRINK AFTER MIDNIGHT: tramadol 50 mg tablet 50 mg PO Q8H PRN Pain (if needed) Take evening before surgery tramadol 50 mg tablet 50 mg PO Q8H PRN Pain (if needed) calcium carbonate 300 mg (750 mg) chewable tablet (Tums) 300 mg PO TID PRN Heartburn (if needed) Other Notes If you have any questions please call us at [phone] or [phone] or [phone] or [phone]
--- NOTE | 2023-08-24 11:03 | History & Physical Report ---
Date of Service August 24, 2023 date of surgery: 09/21/23 date of surgery: Left Total Knee Arthroplasty Surgeon: Rick Rai, DO Assessment & Plan (1) Arthritis of knee, left: Plan: Risk and benefits of the procedure were discussed, he is elected proceed with surgical invention. Plan be left total knee arthroplasty, will discharge home with home health physical therapy, placed on aspirin 81 mg twice a day for 1 month postop DVT prophylaxis. Follow-up in the office 2 weeks after surgery sooner if he is having any issues The risks and benefits have been discussed including, but not limited to, risk of infection, nerve injury, stiffness, loss of motion, failure to improve, etc. Reasonable outcomes and options of treatment were discussed. An explanation of appropriate alternatives to the procedure that may be advantageous were discussed and their risks and benefits, as well as the risks and benefits of not proceeding with treatment. I offered to answer any additional inquiries concerning the treatment involved. All the patient's questions were answered. The patient is agreeable, understanding of the treatment plan and alternatives, and wishes to proceed with the treatment plan. History of Present Illness Chief Complaint: left knee pain Primary Care Provider: Janice oHu is a 58-year-old male who presented for preop evaluation prior to upcoming left total knee arthroplasty. He has longstanding history of left knee pain that is now affecting his daily activities including walking standing using stairs, has tried oral anti-inflammatories and Tylenol without improvement, he is also undergone injections including corticosteroids and viscosupplementation. At this point time is failed conservative measures and wishes to proceed with a left total knee replacement Allergies Allergy/AdvReac Type Severity Reaction Status Date / Time No Known Allergies Allergy Verified 08/19/23 07:39 Home Medications Medication Instructions Recorded Confirmed Type lisinopril 5 mg tablet 5 mg PO QAM 06/21/20 08/19/23 History tramadol 50 mg tablet 50 mg PO Q8H PRN Pain 06/21/20 08/19/23 History calcium carbonate 300 mg (750 mg) 300 mg PO TID PRN Heartburn 08/19/23 08/19/23 History chewable tablet (Tums) diclofenac sodium 75 mg 75 mg PO DAILY PRN Pain 08/19/23 08/19/23 History tablet,delayed release ergocalciferol (vitamin D2) 1,250 1,250 mcg PO MONTHLY 08/19/23 08/19/23 History mcg (50,000 unit) capsule (Vitamin D2) multivitamin 1 tab PO QAM 08/19/23 08/19/23 History Past Med/Surg History Medical History Degenerative disc disease Chronic back pain Ankylosing spondylitis of lumbar region Depression "seasonal" Claustrophobia Suspected sleep apnea per [facility] staff --- patient never tested, unable to wear "anything on his face" Osteoarthritis GERD (gastroesophageal reflux disease) Well controlled and stable without meds Anxiety Stable without meds Hypertension Surgical History History of back surgery [facility] November 2022 -- removal of all hardware and did a full fusion of his lumbar S/P lumbar spinal fusion Dr Irwin L3-L4 decompression and fusion with hardware removal (2019) History of arthroscopy of right knee History of lumbar fusion L4/L5 fusion with hardware (2016) Family History Other No family history of adverse response to anesthesia Social History Smoking Status: Never smoker Second Hand Exposure: No; Do You Dip or Chew Tobacco: No; Tobacco Cessation Education Requested by Patient: No Hx Alcohol Use: Yes Alcohol type: beer Hx Substance Use: No Preferred Language: Czech Communication Ability: Effective Ratchet Setter Required: No Beliefs That Will Affect Care: None marital status: Current Living Situation: Spouse Other Information That Helps Us Care for You: No Assistive Devices: Glasses Review of Systems Review of Systems: All systems reviewed & are unremarkable except as noted in HPI & below Constitutional: no fever, no chills and no sweats Respiratory: no cough and no dyspnea Cardiovascular: no chest pain, no dyspnea and no orthopnea Gastrointestinal: no abdominal pain, no nausea and no vomiting Musculoskeletal: as per Subjective / HPI Physical Exam Physical Exam: HT: 5ft 5.5in WT: 111kg Constitutional: WD/WN, vitals as above no acute distress Respiratory: normal respiratory effort, lungs clear to auscultation no respiratory distress, no labored breathing and does not use accessory muscles Cardiovascular: RRR, no murmur, no edema Gastrointestinal (Abdomen): normal bowel sounds, soft, nontender, no hepatosplenomegaly Musculoskeletal: Knee: + knee abnormal to inspection (LEFT KNEE: ), + effusion (+1 effusion), + limited ROM of knee (ROM 0/3/110), + knee ROM with crepitation, + joint line tenderness (medial joint line) and + Cody's sign positive; no deformity, no skin erythema, no ecchymosis, no valgus laxity, no varus laxity, anterior drawer test negative, Melissa's sign negative and pivot shift test negative Results & Data Results & Data Diagnostic Findings Left Knee X-ray: left knee series confirm advanced degenerative changes to the left knee, greatest medial compartments and patellofemoral joint, showing joint space narrowing, osteophyte formation and subchondral sclerosis. no acute bony pathology noted.
--- NOTE | 2023-08-24 12:23 | Anesthesiology Consultation ---
Date of Service August 24, 2023 Assessment & Plan (1) Encounter for pre-operative examination: Chart Review Chart Review: Acceptable Risk for Surgery (pending PCP clearance and possible PRP ) and Patient seen in Pre Admission Testing - Awaiting PCP clearance 09/09/23 (Dr. Janice Camilo) (please send preop testing and optimization note re: repeat BMP to PCP) Pt currently scheduled as 23 hours observation. If surgeon decides to change patient to Same Day Joint, patient would be acceptable risk for TKA, pending patient is motivated, has good support and surgeon's office completes [facility] preop requirements. Per PAT appt on 08/24/23, no recent illness/disease exposures, illness related symptoms, or recent illness/disease positive tests. Will leave to surgeon's discretion if preop Covid testing needed L3-4 decompression/fusion, L4-5 hardware removal 07/23/20= Done under GA, DVL x 1 with MAC (#3), [place] (#3) 3.0 view, attempt x 1 with GS. Good view with GS (Glidescope #4). Atraumatic Teaching & Discussion Pre-Anesthesia Teaching/Discussion Notes: Instructed NPO after midnight before surgery,except medications with 15 cc of water. Medication instructions provided according to the PAT guidelines. History Surgery Operation Date: 09/21/23 07:15 Proposed Procedures p Left Total Knee Arthroplasty - Rick Rai DO Height/Weight Height: 5 ft 5.5 in Weight: 108.7 kg Allergies Allergy/AdvReac Type Severity Reaction Status Date / Time No Known Allergies Allergy Verified 08/19/23 07:39 Medications Home Medications Medication Instructions Recorded Confirmed Last Taken lisinopril 5 mg tablet 5 mg PO QAM 06/21/20 08/19/23 07/22/20 08:00 tramadol 50 mg tablet 50 mg PO Q8H PRN Pain 06/21/20 08/19/23 07/21/20 21:00 calcium carbonate 300 mg (750 mg) 300 mg PO TID PRN Heartburn 08/19/23 08/19/23 Unknown chewable tablet (Tums) diclofenac sodium 75 mg 75 mg PO DAILY PRN Pain 08/19/23 08/19/23 Unknown tablet,delayed release ergocalciferol (vitamin D2) 1,250 1,250 mcg PO MONTHLY 08/19/23 08/19/23 Unknown mcg (50,000 unit) capsule (Vitamin D2) multivitamin 1 tab PO QAM 08/19/23 08/19/23 Unknown Past Medical History Medical History (Updated 08/25/23 @ 12:32 by Saadia Suarez PA-C) Degenerative disc disease Chronic back pain Ankylosing spondylitis of lumbar region Relatively stable- follows with PCP Depression "seasonal" Claustrophobia with MRI Feels he would be fine with oxygen mask if needed Suspected sleep apnea per [facility] staff --- patient never tested, does not feel he could tolerate any device Osteoarthritis GERD (gastroesophageal reflux disease) Well controlled and stable without meds Anxiety Stable without meds Hypertension Exercise / Class Metabolic Activity II 4-5 Yardwork/Stairs/Walk up hill (one flight of stairs- no chest pain or SOB ) Past Family History Family History Other No family history of adverse response to anesthesia Past Surgical History Surgical History History of back surgery [facility] November 2022 -- removal of all hardware and did a full fusion of his lumbar S/P lumbar spinal fusion Dr Irwin L3-L4 decompression and fusion with hardware removal (2019) History of arthroscopy of right knee History of lumbar fusion L4/L5 fusion with hardware (2016) Past Anesthesia History No Hx of Anesthesia Complications (with exception slow to wake- groggy- no reintubation or ICU stay (no issues with lumbar surgery at [facility] in November 2022)) and No Family Hx of Anesthesia Complications History of PONV No Hx of PONV and No Hx of Motion Sickness Social History Smoking Status: Never smoker Do You Dip or Chew Tobacco: No Hx Alcohol Use: Yes Alcohol type: beer alcohol intake frequency: a few times a week (6 beers/week ) Hx Substance Use: No substance use type: does not use Review of Systems - Hx of snoring- unknown witnessed apnea- unable to do sleep study due to not wanting to wear mask Patient denies chest pain, shortness of breath, dyspnea on exertion, cough, wheezing, palpitations. No hx of seizures, stroke, HI. No hx of blood clots or blood transfusions Physical Exam Vital Signs VITALS BP 133/83 P 68 TEMP 98.0 SP02 97% RESP 16 Constitutional no acute distress ENMT Mouth: no TMJ clicking Thyromental Distance: > or= 3.5 Finger Breadths (3.5) Mallampati Class: III Neck + thick neck; neck extension not limited Respiratory normal respiratory effort; no respiratory distress Auscultation: lungs clear to auscultation bilaterally; no wheezes Cardiovascular Rate/Rhythm: regular rate and regular rhythm Heart Sounds: no murmur Vessels: no carotid bruit Musculoskeletal Spine: no pain with cervical ROM Extremities: extremities normal to inspection Psychiatric Orientation: alert Lab Results Anesthesia Preop Results Results Anesthesia Widget: WBC 8.00 K/ul (4.8-10.8) 08/24/23 Hgb 15.3 g/dl (14.0-18.0) 08/24/23 Hct 46.4 % (42.0-52.0) 08/24/23 Plt 179 K/uL (130-400) 08/24/23 PT 11.1 Seconds (9.0-12.0) 08/24/23 PTT 29 Seconds (21-31) 08/24/23 INR 1.0 (0.9-1.1) 08/24/23 HA1c 5.5 % (4.5-5.6) 08/24/23 Urine Color Yellow 08/24/23 Urine Appearance Clear (Clear) 08/24/23 Urine pH 5.0 (4.5-7.5) 08/24/23 Urine Specific Hardesty 1.028 (1.000-1.030) 08/24/23 Urine Protein Negative (Negative) 08/24/23 Urine Glucose (UA) Negative (Negative) 08/24/23 Urine Ketones Trace (Negative) H 08/24/23 Urine Blood Negative (Negative) 08/24/23 Urine Nitrite Negative (Negative) 08/24/23 Urine Bilirubin Negative (Negative) 08/24/23 Urine Urobilinogen Negative (Negative) 08/24/23 Urine Leukocyte Esterase Negative (Negative) 08/24/23 Blood Type O Positive 08/24/23 Antibody Screen NEGATIVE 08/24/23 Testing Laboratory Results PRP hemolyzed- note sent to PCP to see if PRP can be do at PCP preop appt 09/09/23; surgeon's office also informed Electrocardiogram Date: 08/24/23 Normal sinus rhythm with sinus arrhythmia at 66 bpm Minimal voltage criteria for LVH, may be normal variant When compared to EKG from June 25, 2020no significant changes found per cardio Chest X-Ray Date: 08/24/23 Findings: + NAD and + cardiomegaly FINDINGS: Lung volumes are normal. Lungs are clear. There is no pneumothorax or pleural effusion. Mild cardiomegaly is unchanged. Mediastinal contours are normal. There is no evidence for pulmonary edema.
[~2023-09-21 10:19] MED LIST changes: +BUPIVACAINE 0.5 % 5 MG/1 ML PF 10ML VIAL ONE; +EPINEPHrine INJ 1 MG/ML AMP ONE; +FAMOTIDINE 20 MG TAB PO SCH; +GABAPENTIN 300 MG CAP PO SCH; -GABAPENTIN 600 MG DOSE PO SCH; -HYDROmorphone INJ 2 MG/ML SYR/VIAL ONE; -LR 15ML/HR IV SCH; +LR 500ML BOLUS, THEN 15ML/HR IV SCH; +LR 60ML/HR IV SCH; +METOCLOPRAMIDE HCL 10 MG TABLET PO SCH; -MIDAZOLAM HCL 1 MG/ML 2ML VIAL ONE; +ROPIV 0.5% 246mg, Ketorolac 30mg, EPINEPHrine 0.5mg in NSS INFIL SCH; +ROPIVACAINE 0.5% 5 MG/ML 30 ML VIAL ONE; +TRANEXAMIC ACID 1,000 MG **IV Intra-op IV SCH; +TRANEXAMIC ACID 1,000 MG **IV Pre-op IV SCH; -fentaNYL citrate 100 MCG/2 ML VIAL ONE
[2023-09-21] MEDS ORDERED: MIDAZOLAM HCL 1 MG/ML 2ML VIAL ONE (10:44)
--- NOTE | 2023-09-21 11:17 | Operative Report ---
Post Operative Report Pre & Post Diagnosis Operation Date: 09/21/23 11:55 <No data on this case meets the specified criteria> I identified the patient and participated in the time-out.: Yes Procedure Left total knee arthroplasty utilizing Waldrop [employer] Nephew journey 2 patient-matched total knee arthroplasty size femur 4 tibia 3 poly 11 patella 29 oval Operation Date: 09/21/23 11:55 <No data on this case meets the specified criteria> Surgeon Rick Rai DO Melt Room Operator YULISSA Coelho Estimated Blood Loss 10 Findings Consistent with Post-Op Diagnosis Patient presents with severe end-stage tricompartmental degenerative joint disease left knee nonresponse to conservative management varus alignment subchondral sclerosis marginal osteophytes 10 degree flexion contracture moderate to large effusion Specimens Bone card Drains Medium bore Hemovac Anesthesia Type MAC Spinal Regional Complications none Disposition Accompanied Patient To Recovery: No Disposition: Recovery Room Indications Patient presents with severe end-stage DJD left knee nonresponse to conservative management above intraoperative findings are noted patient is failed attempted conservative management occluding physical therapy anti-inflammatories relative rest activity modification corticosteroid injections viscosupplementation Description of Procedure After proper prepping and draping of the left lower extremity anterior midline incision was made over the region of the extensor extensor mechanism after meticulous hemostasis was obtained and maintained in subcutaneous tissues a medial parapatellar incision was made The patella was subluxed lateralward the medial lateral gutter were cleaned from any hypertrophic synovitis and scar tissue of the distal femoral block was placed and the distal femoral osteotomy cut was made subsequently the chamfers anterior and posterior osteotomy cuts were made utilizing the 4-in-1 block the tibia was subsequently subluxed anteriorward medial and ateral meniscal remnants were excised in their entirety remnants of the anterior and posterior cruciate ligaments were excised in their entirety excellent exposure of the proximal tibia was obtained the tibial osteotomy guide was placed on the proximal tibial osteotomy cut was made once again the knee was irrigated with copious amounts of sterile saline solution the patella was subsequently everted lateralward thickened scar tissue around the patella was removed the patella was subsequently cut utilizing a freehand technique and was drilled prepared for final preparation and placement of patella socially flexion-extension gaps were checked and the equal and symmetric trials were placed to the appropriate femoral and tibial trials with poly-spacer being placed for equal flexion and extension gaps and full range of motion including extension to 0 and flexion to 140 the trial components after having been taken to recovery range of motion was subsequently removed meticulous hemostasis was obtained and maintained subsequently a knee block injection of joint cocktail including ropivacaine 0.5% 150 mg. Bupivacaine 0.5% epinephrine 1-200,030 mL's toradol 30 mg dexamethasone 4 mg ketamine 10 mg clonidine 100 micrograms normal saline solution 30 mg was infiltrated into the soft tissues of the posterior knee medial lateral gutters and periosteal synovium special attention was paid to protect neurovascular structures at all times subsequently trial components having been removed the knee was irrigated with sterile saline solution. debris was removed the proximal tibia was subsequently prepared and was made ready for the placement of the tibial component tibial component was also cemented and tamped into position the femoral component was subsequently placed and cemented in the position the patellar component was subsequently cemented in position because hemostasis once again obtained and maintained wound having been thoroughly irrigated with debridement and debridement lavage was performed as well as a medial parapatellar incision closed with #1 Vicryl in interrupted fashion subcutaneous was closed with #2 Vicryl skin was closed with skin clips. PA-C was necessary for prepping and drapping as well as wound closure of deep fascia Sub cutaneous tissue and skin and was necessary for the case. A sterile compressive dressing was placed patient was taken to recovery in stable condition of report dictated by Fredi I attest to the content of the Intraoperative Record and any orders documented therein. Any exceptions are noted below.Due to the complex nature of the procedure, the entire surgery was performed with the operational assistance of YULISSA Coelho. The business assistant, under direct supervision, was involved in the actual performance of all aspects of the surgical procedure including hemostasis, tissue retraction and incision, instrument management, patient positioning, and wound closure. I attest to the content of the Intraoperative Record and any orders documented therein. Any exceptions are noted below.
--- NOTE | 2023-09-21 11:27 | History & Physical Bridge Note ---
Date of Service September 21, 2023 History & Physical Bridge Note I have examined the patient, reviewed the History & Physical and in the interval since the performance of the History & Physical I have noted the following changes of clinical significance: no changes noted
[2023-09-21] MEDS ORDERED: HYDROmorphone INJ 1 MG/ML SYRINGE IV PRN ×2 (11:51→16:56)
[2023-09-21] MEDS ORDERED: fentaNYL citrate PF 100 MCG/2 ML VIAL IV PRN (11:51)
[2023-09-21] MEDS ORDERED: ePHEDrine sulfate 50 MG/ML AMP IV PRN (11:51)
[2023-09-21] MEDS ORDERED: NALOXONE HCL 0.4 MG/1 ML VIAL/CARP IV PRN ×2 (11:51→16:56)
[2023-09-21] MEDS ORDERED: PROMETHAZINE HCL 12.5 MG in SODIUM CHLORIDE 0.9% 50 ML IV PRN (11:51)
[2023-09-21] MEDS ORDERED: FLUMAZENIL 0.1 MG/1 ML 10 ML VIAL IV PRN (11:51)
[2023-09-21] MEDS ORDERED: ATROPINE SULFATE 0.1 MG/ML 10ML SYR IV PRN (11:51)
[2023-09-21] MEDS ORDERED: ONDANSETRON INJ 2 MG/ML 2 ML VIAL IV PRN ×2 (11:51→16:56)
[2023-09-21] MEDS ORDERED: ORTHO JOINT ANESTHETIC ONE (12:15)
[2023-09-21] MEDS ORDERED: fentaNYL citrate PF 100 MCG/2 ML VIAL ONE (13:19)
[2023-09-21] MEDS ORDERED: ONDANSETRON INJ 2 MG/ML 2 ML VIAL ONE (13:27)
[2023-09-21] MEDS ORDERED: PROPOFOL IV EMULSION 10 MG/ML 20 ML VIAL IV ONE ×3 (13:27→14:27)
--- NOTE | 2023-09-21 14:18 | Operative Report ---
Post Operative Report Pre & Post Diagnosis Operation Date: 09/21/23 11:55 Pre-Op Diagnosis: Left Knee Osteoarthritis Post-Op Diagnosis: Left Knee Osteoarthritis I identified the patient and participated in the time-out.: Yes Procedure Operation Date: 09/21/23 11:55 Actual Procedures p Left Total Knee Arthroplasty(Left) Utilizing Waldrop & NephSandata journey 2 patient- matched total knee arthroplasty size femur 6 tibia 6 poly 9 patella 32 marcus Rai DO Surgeon Rick Rai DO Mirror Silverer YULISSA Coelho Estimated Blood Loss 10 Findings Consistent with Post-Op Diagnosis Patient presents with severe end-stage tricompartmental DJD medial and lateral femoral osteophyte subchondral cystic changes sclerosis eburnated [id number] with moderate to large effusion Specimens Bone and cartilage Drains Medium bore Hemovac Anesthesia Type MAC Spinal Regional Complications none Disposition Accompanied Patient To Recovery: No Disposition: Recovery Room Indications Patient presents with severe end-stage DJD left knee nonresponse to conservative management patient failed attempted conservative management including corticosteroid injection viscosupplementation relative rest activity modification the above intraoperative findings were noted Description of Procedure After proper prepping and draping of the left lower extremity anterior midline incision was made over the region of the extensor extensor mechanism after meticulous hemostasis was obtained and maintained in subcutaneous tissues a medial parapatellar incision was made The patella was subluxed lateralward the medial lateral gutter were cleaned from any hypertrophic synovitis and scar tissue of the distal femoral block was placed and the distal femoral osteotomy cut was made subsequently the chamfers anterior and posterior osteotomy cuts were made utilizing the 4-in-1 block the tibia was subsequently subluxed ant eriorward medial and ateral meniscal remnants were excised in their entirety remnants of the anterior and posterior cruciate ligaments were excised in their entirety excellent exposure of the proximal tibia was obtained the tibial osteotomy guide was placed on the proximal tibial osteotomy cut was made once again the knee was irrigated with copious amounts of sterile saline solution the patella was subsequently everted lateralward thickened scar tissue around the patella was removed the patella was subsequently cut utilizing a freehand technique and was drilled prepared for final preparation and placement of patella socially flexion-extension gaps were checked and the equal and symmetric trials were placed to the appropriate femoral and tibial trials with poly-spacer being placed for equal flexion and extension gaps and full range of motion including extension to 0 and flexion to 140 the trial components after having been taken to recovery range of motion was subsequently removed meticulous hemostasis was obtained and maintained subsequently a knee block injection of joint cocktail including ropivacaine 0.5% 150 mg. Bupivacaine 0.5% epinephrine 1-200,030 mL's toradol 30 mg dexamethasone 4 mg ketamine 10 mg clonidine 100 micrograms normal saline solution 30 mg was infiltrated into the soft tissues of the posterior knee medial lateral gutters and periosteal synovium special at tention was paid to protect neurovascular structures at all times subsequently trial components having been removed the knee was irrigated with sterile saline solution. debris was removed the proximal tibia was subsequently prepared and was made ready for the placement of the tibial component tibial component was also cemented and tamped into position the femoral component was subsequently placed and cemented in the position the patellar component was subsequently cemented in position because hemostasis once again obtained and maintained wound having been thoroughly irrigated with debridement and debridement lavage was performed as well as a medial parapatellar incision closed with #1 Vicryl in interrupted fashion subcutaneous was closed with #2 Vicryl skin was closed with skin clips. PA-C was necessary for prepping and drapping as well as wound closure of deep fascia Sub cutaneous tissue and skin and was necessary for the case. A sterile compressive dressing was placed patient was taken to recovery in stable condition of report dictated by Fredi I attest to the content of the Intraoperative Record and any orders documented therein. Any exceptions are noted below.Due to the complex nature of the procedure, the entire surgery was performed with the operational assistance ofYULISSA Coelho. The bankruptcy assistant, under direct supervision, was involved in the actual performance of all aspects of the surgical procedure including hemostasis, tissue retraction and incision, instrument management, patient positioning, and wound closure. I attest to the content of the Intraoperative Record and any orders documented therein. Any exceptions are noted below.
--- NOTE | 2023-09-21 15:07 | Anesthesiology Progress Note ---
Date of Service September 21, 2023 Anesthesia Post Procedure Vital Signs Vital Signs: Temp Pulse Resp BP Pulse Ox O2 Del Method 09/21/23 11:11 36.9 C 93 H 18 178/86 H 98 Room Air Pain Intensity Bilateral Knee: Pain Intensity: 7 Transfer of Care Handoff Completed per policy Notes Mental Status: alert / awake / arousable Patient Amnestic to Procedure: Yes Nausea / Vomiting: adequately controlled Pain: adequately controlled Airway Patency, RR, SpO2: stable & adequate BP & HR: stable & adequate Hydration State: stable & adequate Neuraxial Anesthesia: was administered and sensory block is resolving Anesthetic Complications: no major complications apparent and Pt Satisfied with anesthetic care
--- NOTE | 2023-09-21 15:34 | XRay Report ---
LEFT KNEE 2 VIEWS History: Left total knee arthroplasty. Degenerative arthritis. Postop. FINDINGS: The patient is status post a left total knee arthroplasty. The hardware is intact. No fract ure or dislocation. Surgical drains are in place. IMPRESSION: Left total knee arthroplasty. No evidence for hardware complication. ACT 112: Negative or not required by law. Electronically signed by: Mina Valadez M.D. 09/21/2023 3:33 PM
[2023-09-21] MEDS ORDERED: diphenhydrAMINE Capsule 25 MG CAP PO PRN (16:56)
[2023-09-21] MEDS ORDERED: bisacodyL 10 MG SUPP PR PRN (16:56)
[2023-09-21] MEDS ORDERED: METOCLOPRAMIDE HCL INJ 5 MG/ML 2 ML VIAL IV PRN (16:56)
[2023-09-21] MEDS ORDERED: MAGNESIUM HYDROXIDE SUSP 30 ML UDC PO PRN (16:56)
[2023-09-21] MEDS ORDERED: CALCIUM CARBONATE 500 MG CHEWABLE TAB PO PRN (17:02)
[2023-09-21] MEDS: SODIUM CHLORIDE 0.9% 1,000 ML IV SCH (17:20)
[2023-09-21] MEDS: ACETAMINOPHEN 500 MG TAB PO SCH ×2 (17:21→22:11)
[2023-09-21] MEDS: KETOROLAC TROMETHAMINE 15 MG/ML VIAL IV SCH ×2 (17:21→23:37)
[2023-09-21] MEDS: oxyCODONE HCL IR 5 MG TAB (IMMEDIATE RELEASE) PO PRN ×2 (17:40→22:11)
[2023-09-21] MEDS: DOCUSATE SODIUM 100 MG CAP PO SCH (20:43)
[2023-09-21] MEDS ORDERED: SENNA 8.6 MG TAB PO SCH (21:00)
[2023-09-21] MEDS: ceFAZolin 2000MG 2,000 MG/15 ML SYR IV SCH (21:01)
[2023-09-21] MEDS: ASPIRIN 81 MG ECTAB PO SCH (21:01)
[2023-09-22] MEDS: SODIUM CHLORIDE 0.9% 1,000 ML IV SCH (03:29)
[2023-09-22] MEDS: ceFAZolin 2000MG 2,000 MG/15 ML SYR IV SCH (05:55)
[2023-09-22] MEDS: ACETAMINOPHEN 500 MG TAB PO SCH (05:55)
[2023-09-22] MEDS: KETOROLAC TROMETHAMINE 15 MG/ML VIAL IV SCH (05:55)
[2023-09-22] MEDS: oxyCODONE HCL IR 5 MG TAB (IMMEDIATE RELEASE) PO PRN (06:02)
--- NOTE | 2023-09-22 07:39 | Orthopedic Progress Note ---
Date of Service September 22, 2023 Assessment & Plan (1) History of total left knee replacement: Plan: POD #1 s/p left TKA pt/ot dvt proph with CM/SCD/ASA plan for d/c home with HHPT Admission and Anticipated Discharge Date Admission Date: September 21, 2023 Subjective POD #1 s/p Left TKA Review of Systems Constitutional: no fever, no chills and no sweats Respiratory: no cough and no dyspnea Cardiovascular: no chest pain and no dyspnea Gastrointestinal: no abdominal pain, no nausea and no vomiting Physical Exam Physical Exam: Vital Signs Temp 36.8 C 09/22/23 07:38 Pulse 73 09/22/23 07:38 Resp 16 09/22/23 07:38 BP 167/89 H 09/22/23 07:38 Pulse Ox 97 09/22/23 07:38 O2 Del Method Room Air 09/22/23 07:38 Intake & Output 09/21/23 09/22/23 09/22/23 18:59 06:59 18:59 Intake Total 1400 / 2400 1000 / 2400 Output Total 70 / 645 575 / 645 Balance 1330 / 1755 425 / 1755 Weight 108.1 kg Intake: IV 200 / 1200 1000 / 1200 Lactated Ringe r's 1,000 ml @ 15 0 / 0 mls/hr IV .Q24 H [facility] Rx#: [id number] Sodium Chlorid e 0.9% 1,000 ml @ 1000 / 1000 100 mls/hr IV .Q10H [facility] Rx#: [id number] Tranexamic Aci d / 0.7% NaCl 1, 200 / 200 000 mg In 100 ml @ 600 mls/hr IV TODAY@0600 [facility] Rx#:[id number] IV Perioperative 1200 / 1200 Output: Urine 450 / 450 Estimated Blood Loss 10 / 10 Drain Output 60 / 185 125 / 185 Left Knee Hemo vac 60 / 185 125 / 185 Other: Weight Measureme nt Method Standing Scale Musculoskeletal: Left Leg: NVDI, calf SNT, negative lavon sign. DP palpable, able to wiggle toes/ankle movement without difficulty. dressing clean dry and intact. Results & Data Vital Signs (Past 12 Hours) Vital Signs Temp Pulse Resp BP Pulse Ox O2 Del Method 09/22/23 07:38 36.8 C 73 16 167/89 H 97 Room Air 09/22/23 03:24 36.7 C 70 18 151/90 H 97 Room Air 09/22/23 00:00 36.7 C 85 18 149/85 H 95 Room Air 09/21/23 20:04 36.9 C 88 18 152/89 H 95 Room Air Laboratory Results Impressions Knee X-Ray 09/21/23 13:34 LEFT KNEE 2 VIEWS History: Left total knee arthroplasty. Degenerative arthritis. Postop. FINDINGS: The patient is status post a left total knee arthroplasty. The hardware is intact. No fracture or dislocation. Surgical drains are in place. IMPRESSION: Left total knee arthroplasty. No evidence for hardware complication. ACT 112: Negative or not required by law. Electronically signed by: Mina Valadez M.D. 09/21/2023 3:33 PM
[2023-09-22 07:41] LABS: Hematocrit (blood only) 38.6 % (42.0-52.0); Mean Corpuscular Hemoglobin 29.2 pg (25.0-34.0); Mean Corpuscular Hgb Conc 33.7 g/dL (32.0-36.0); Mean Corpuscular Volume 86.7 fL (80.0-100.0); Mean Platelet Volume 10.2 fL (9.4-12.4); Platelet Count 130 K/uL (130-400); RDW Coefficient of Variation 13.5 % (11.5-14.5); RDW Standard Deviation 42.5 fL (36.4-46.3); Red Blood Count 4.45 M/uL (4.70-6.10); White Blood Count 8.36 K/ul (4.8-10.8)
--- NOTE | 2023-09-22 07:43 | Discharge Summary ---
Date of Service date of discharge: September 22, 2023 date of admission: 09/21/23 Admission HPI Per Admitting Provider Ameya is a 58-year-old male who presented for preop evaluation prior to upcoming left total knee arthroplasty. He has longstanding history of left knee pain that is now affecting his daily activities including walking standing using stairs, has tried oral anti-inflammatories and Tylenol without improvement, he is also undergone injections including corticosteroids and viscosupplementation. At this point time is failed conservative measures and wishes to proceed with a left total knee replacement Principal Diagnosis left knee replacement Discharge Exam Vital Signs Temp 36.8 C 09/22/23 07:38 Pulse 73 09/22/23 07:38 Resp 16 09/22/23 07:38 BP 167/89 H 09/22/23 07:38 Pulse Ox 97 09/22/23 07:38 O2 Del Method Room Air 09/22/23 07:38 Intake & Output 09/21/23 09/22/23 09/22/23 18:59 06:59 18:59 Intake Total 1400 / 2400 1000 / 2400 Output Total 70 / 645 575 / 645 Balance 1330 / 1755 425 / 1755 Weight 108.1 kg Intake: IV 200 / 1200 1000 / 1200 Lactated Ringer's 1,000 ml @ 15 0 / 0 mls/hr IV .Q24H [facility] Rx#: [id number] Sodium Chloride 0.9% 1,000 ml @ 1000 / 1000 100 mls/hr IV .Q10H [facility] Rx#: [id number] Tranexamic Acid / 0.7% NaCl 1, 200 / 200 000 mg In 100 ml @ 600 mls/hr IV TODAY@0600 [facility] Rx#:[id number] IV Perioperative 1200 / 1200 Output: Urine 450 / 450 Estimated Blood Loss 10 / 10 Drain Output 60 / 185 125 / 185 Left Knee Hemovac 60 / 185 125 / 185 Other: Weight Measurement Method Standing Scale Musculoskeletal left knee: NVDI, calf SNT, negative lavon sign. DP palpable, able to wiggle toes/ankle movement without difficulty. TIFFANIE dressing clean dry and intact. expected post-operative bruising noted. Discharge Data Allergies Allergy/AdvReac Type Severity Reaction Status Date / Time No Known Allergies Allergy Verified 09/21/23 11:07 Procedures Performed Operation Date: 09/21/23 11:55 Actual Procedures p Left Total Knee Arthroplasty(Left) - Rick Mandel DO Ordered Studies 09/21/23 05:00 US - OR guided needle placemen Routine Hospital Course (1) History of total left knee replacement: POD #1 s/p left TKA pt/ot dvt proph with CM/SCD/ASA plan for d/c home with HHPT Total Time Total Time Spent Total Time Spent (In Minutes): 20 Discharge Plan Discharge Items Patient Disposition: Home - Home Health Services Reason For Visit: POST OP TKA Discharge Diagnosis: left total knee replacement Activity: Per Instructions section Weightbearing Comment: wbat with walker Non-emergency contact: Surgeon Call non-emergency contact if: you have any medication questions, your temperature is above 101, your wound has increased redness, your wound has increased drainage and your wound pain has increased Follow-up/Referrals: Janice Camilo M.D. [Primary Care Provider] - Diet: Regular Addtl Attending Provider Instructions: ACTIVITY RECOMMENDATIONS: SELF CARE INSTRUCTIONS AFTER TOTAL KNEE REPLACEMENT A. You may need to continue a physical therapy program after discharge from the hospital. There are several options available to you. Your doctor will assist you in selecting the best one for you. 1. An out-patient facility 2 to 3 times a week for therapy or home therapy. 2. Continue working on all exercises taught to you in the hospital. Your goals should be to increase bending of your knee to 90 degrees and beyond and to fully straighten your knee. B. You may progress at your own pace from walking with a walker or crutches to a cane; then to no assistive devices. C. Make walking a part of your daily routine. Be up as much as comfortable with rest periods throughout the day. Rest with leg elevation is very important. Use the ice wrap frequently for the first 3-4 weeks. D. There are no restrictions on activities. You may ride in a car, shop, participate in outpatient facility physical therapist and all social activities. E. Wear the long elastic stockings (CM hose) 20 hours a day for 2 weeks after surgery. They can be removed several times a day for laundering and for a bath. F. You may shower, no tub baths until cleared by your doctor. SPECIAL CARE INSTRUCTIONS: VERY IMPORTANT TO READ AND REVIEW A. There are a few signs you need to watch for after you are home. Call [facility] if you notice any of the followin. Increased severe knee pain. Some pain is expected especially when you exercise. 2. Increased swelling in your leg or knee; pain or swelling of the calf muscle in either lower leg. 3. Any fluid drainage from the incision. 4. Shortness of breath or chest pain. B. Please call [facility] at if you have any concerns or questions about your operation or recovery. The doctor or his nurse will return your call promptly. C. You must take antibiotics before dental work, bladder, bowel or other surgery. Your doctor will provide you with a permanent care to carry describing this precaution. IMPORTANT: * REMEMBER TO TAKE ASPIRIN, 81 MG, TWICE DAILY FOR 4 WEEKS UNLESS OTHERWISE DIRECTED. THIS IS YOUR BLOOD THINNER. * HIGH RISK PATIENTS MAY BE PRESCRIBED A STRONGER BLOOD THINNER. THIS WILL BE PROVIDED AT DISCHARGE. * CALL IF INCREASED PAIN, REDNESS, DRAINAGE OR FEVER GREATER THAT 101. * WEAR CM HOSE 20 HOURS PER DAY FOR 2 WEEKS. DRESSING INSTRUCTIONS * TIFFANIE Dressing- This is a large suction dressing covering your incision. This will help pull any excess drainage from the wound and allow your incision to heal properly. You may shower with this if you can keep the unit outside of the shower. If any bleeding or leakage is noted please call your doctor's office. This will remain on your incision for 7 days and then should be removed. This can be done yourself or by the home nursing staff if applicable. The entire unit is disposable once removed. Once removed, keep incision clean and dry. If redness or drainage is noted, please call your surgeon. ONCE TIFFANIE IS REMOVED, FOLLOW THESE INSTRUCTIONS: DERMABOND Prineo- This is a mesh tape dressing that is covered with glue. It should remain in place until the incision is properly healed, usually 10-14 days. This dressing is designed to naturally slough off. You may trim the excess mesh tape as it peels off. Incision may be briefly wet in a shower. Dry immediately by blotting with a clean, dry towel. Do not bath or swim until instructed by your doctor. Do not scratch, rub, or pick at the dressing. Do not apply any topical ointments or lotions until dressing is completely removed and/or instructed by your doctor. There may be a small piece of suture material at one end of your incision. Do not pull or trim this. If it is bothersome or catching on clothing, you may cover it with a band-aid. IF INCISION IS LEAKING THROUGH DRESSING, CALL THE OFFICE . FOLLOW UP VISIT: If appointment is not already scheduled: Please call [facility] [place] [facility] to make a follow-up appointment for 2 weeks after your surgery at . Pending Studies at Discharge: No Stand-Alone Forms: My [facility] Medications and DC Order Prescriptions: New celecoxib [Celebrex] 200 mg capsule 200 mg PO BID 30 Days Qty: 60 0RF aspirin 81 mg tablet,delayed release (DR/EC) 81 mg PO BID 30 Days Qty: 60 0RF acetaminophen 500 mg tablet 1,000 mg PO Q8 21 Days Qty: 126 0RF cefadroxil 500 mg capsule 500 mg PO BID 14 Days Qty: 28 0RF docusate sodium 100 mg Capsule 100 mg PO BID Qty: 20 0RF oxycodone 5 mg tablet 5 - 10 mg PO Q6H PRN (Reason: pain) Qty: 30 0RF Rx Instructions: ongoing therapy, supervising dr kaiden mandel. max 6 tabs in 24 hours Continued lisinopril 5 mg Tablet 5 mg PO QAM calcium carbonate [Tums] 300 mg (750 mg) Tablet,Chewable 300 mg PO TID PRN (Reason: Heartburn) multivitamin Tablet 1 tab PO QAM ergocalciferol (vitamin D2) [Vitamin D2] 1,250 mcg (50,000 unit) Capsule 1,250 mcg PO MONTHLY Discontinued tramadol 50 mg Tablet 50 mg PO Q8H PRN (Reason: Pain) acetaminophen 500 mg Tablet 1,000 mg PO Q6H PRN (Reason: Pain) aspirin 81 mg Tablet 81 mg PO DAILY Admission Data Admit Date/Time: 09/21/23 13:34 Attending Provider: Rick Mandel Admit Provider: Rick Mandel Primary Care Provider: Janice Camilo
[2023-09-22] MEDS: ASPIRIN 81 MG ECTAB PO SCH (07:54)
[2023-09-22] MEDS: DOCUSATE SODIUM 100 MG CAP PO SCH (07:55)
[2023-09-22 07:58] LABS: BUN Creatinine Ratio 16.9 (10-20); Creatinine Clr Calc Pharmacy 63.8 ml/min; Est GFR (African American) 61.8 ml/min; Est GFR (Non-African American) 53.3 ml/min; Potassium 4.2 mmol/L (3.5-5.1)
[2023-09-22] MEDS ORDERED: lisinopril 5 MG TAB PO SCH (09:00)
[2023-09-22] MEDS ORDERED: MULTIVITAMIN TAB PO SCH (09:00)
[2023-09-22] MEDS ORDERED: CeleBREX 200 MG CAP PO SCH (21:00)
[2023-10-12] MEDS ORDERED: ERGOCALCIFEROL 50,000 UNITS 1250 MCG CAP PO SCH (09:00)
== END 2023-09-22 10:58 | disposition home health service (06) ==
LOC: 3W 10:19 → ASU 10:19